=== PATIENT | male | born 1990 | race American Indian/Alaskan Native ===

== ENCOUNTER 2017-07-20 10:46 | Emergency (ER) | payer SELFPAY ==
[2017-07-20 11:28] VITALS: BP 150/98
--- NOTE | 2017-07-20 12:51 | Emergency Department Report ---
Chief Complaint: Dental/Oral Stated Complaint: TOOTHACHE Time Seen by Provider: 07/20/17 12:44 - HPI History of Present Illness: Patient is a 27-year-old [place] male whose presenting with right-sided tooth pain. Patient states his right upper post ear molar is aching patient has 8 out of 10 pain patient's been having difficulty chewing. This is been going on for approximately 4 days. As any pain with swallowing fever - ROS Review of Systems: Review of systems negative except for those elements in HPI - Exam Vital Signs: Vital Signs 07/20/17 11:26 Temperature 97.8 F Pulse Rate 84 Respiratory 18 Rate Blood Pressure 150/98 O2 Sat by Pulse 97 Oximetry Physical Exam: Focused physical exam patient has tenderness to the posterior right bottom molar MSE screening note: Focused history and physical exam performed. Due to findings the following was ordered: Patient's been screened out to go to the dental clinic down the street ED Disposition for MSE Disposition: Z-07 MED SCREENING EXAM-LEFT Is pt being admited?: No Does the pt Need Aspirin: No Condition: Fair Referrals: PRIMARY CARE [Primary Care Provider] - 3-5 Days
== END 2017-07-20 13:07 | disposition left against medical advice (07) ==
LOC: ED 10:46
DX: K08.89 Other specified disorders of teeth and supporting structures (principal); Z53.21 Procedure and treatment not carried out due to patient leaving prior to being seen by health care provider